=== PATIENT | male | born 1990 | race Caucasian/White ===

== ENCOUNTER 2025-05-03 21:10 | Emergency (ER) | payer SELFPAY ==
--- OUTSIDE RECORDS SUMMARY | 2025-05-03 21:13 | XMS REPORT | Continuity of Care Document ---
Author Name Unknown Address [address] [facility] [address] [place] [address] [facility] Address [address] [facility] [place] [address] Care Team Providers Care Carver Hand Name Role Phone PCP, PATIENT DOES NOT HAVE A Primary Care Physic pat Unavailable JOSE FRANCISCO MENDOZA Attending Clinician Unavail JOSE FRANCISCO Painter Attending Clinician Unavail able Shira Drew PA-C Attending Clinician [phone] Unknown, Attending Attending Clinician Unavailab SHIRA Bettencourt Attending Clinician Unavailable JOSE FRANCISCO MENDOZA Admitting Clinician Unavail able Problems Condition Name Condition Details Condition Category Status Onset Date Resolution Date Last Treatment Date Treating Clinician Comments Source Epigastric pain Epigastric pain Disease Active 04-26 00:00: 00 [facility] Allergies, Adverse Reactions, Alerts Allergy Name Allergy Type Status Severity Reaction(s) Onset Date Inactive Date Treating Clinician Comments Source NO KNOWN ALLERGIE S Drug Class Active [facility] Social History Social Habit Start Date Stop Date Quantity Comments Source [facility] use and exposure 2024-07-31 00:00:00 2024-07-31 00:00:00 Smokeless tobacco non-user [facility] History of Social function 2024-07-31 00:00:00 2024-07-31 00:00:00 [facility] Sex assigned at 1990 00:00:00 1990 00:00:00 [facility] Smoking Status Start Date Stop Date Source Never smoked tobacco [facility] Medications Ordered Medication Name Filled Medication Name Start Date Stop Date Current Medication? Ordering Clinician Indication Dosage Frequency Signature (SIG) Comments Components Source dicyclomine 20 mg tablet 04-26 00:00: 00 05-02 04:59 :00 Yes [id number] 20mg Take 1 tablet by mouth every 8 hours as needed for Abdominal pain for up to 5 days. [facility] Immunizations Ordered Immunization Name Filled Immunization Name Date Status Comments Source TDAP 2024-10-11 00:00:00 Completed [facility] Vital Signs Vital Name Observation Time Observation Value Comments S alexa Systolic blood pressure 2025-04-27 04:49:00 125 mm[Hg] [facility] Diastolic blood pressure 2025-04-27 04:49:00 75 mm[Hg] [facility] Heart rate 2025-04-27 04:49:00 76 /min [facility] Body temperature 2025-04-27 04:49:00 36.67 [facility] Respiratory rate 2025-04-27 04:49:00 16 /min [facility] Oxygen saturation in Arterial blood by Pulse oximetry 2025-04-27 04:49:00 100 /min [facility] Body height 2025-04-27 01:59:00 190.5 cm [facility] Body weight 2025-04-27 01:59:00 122.018 kg [facility] BMI 2025-04-27 01:59:00 33.62 kg/m2 [facility] Systolic blood pressure 2025-04-23 19:03:00 125 mm[Hg] [facility] Diastolic blood pressure 2025-04-23 19:03:00 83 mm[Hg] [facility] Heart rate 2025-04-23 19:03:00 80 /min [facility] Body temperature 2025-04-23 19:03:00 37.11 [facility] Body height 2025-04-23 19:03:00 190.5 cm [facility] Body weight 2025-04-23 19:03:00 122.063 kg [facility] BMI 2025-04-23 19:03:00 33.64 kg/m2 [facility] Oxygen saturation in Arterial blood by Pulse oximetry 2025-04-23 19:03:00 97 /min [facility] Systolic blood pressure 2024-10-12 01:18:00 129 mm[Hg] [facility] Diastolic blood pressure 2024-10-12 01:18:00 88 mm[Hg] [facility] Heart rate 2024-10-12 01:18:00 96 /min [facility] Body temperature 2024-10-12 01:18:00 36.56 [facility] Respiratory rate 2024-10-12 01:18:00 17 /min [facility] Body height 2024-10-12 01:18:00 190.5 cm [facility] Body weight 2024-10-12 01:18:00 125.816 kg [facility] BMI 2024-10-12 01:18:00 34.67 kg/m2 [facility] Oxygen saturation in Arterial blood by Pulse oximetry 2024-10-12 01:18:00 99 /min [facility] Procedures Procedure Date / Time Performed Performing Clinicia n Source HEPATIC FUNCTION PANEL ([id number]) (ALB,T.PRO,BILI T,BU/BC,ALT,AST,ALK PHOS) 2025-04-27 03:12:00 [facility] COMP. METABOLIC PANEL (79649) 2025-04-27 03:12:00 [facility] CBC WITH DIFF 2025-04-27 03:12:00 [facility] URINALYSIS 2025-04-27 03:12:00 [facility] CT ABDOMEN PELVIS WO CONTRAST 2025-04-27 02:57:51 [facility] XR KUB 2025-04-23 19:45:10 [facility] TDAP VACCINE, >11 YRS, IM 2024-10-12 01:20:59 Rajendra Shira [facility] Encounters Start Date/Time End Date/Time Encounter Type Admission Type Attending [facility] Care Facility Care Department Encounter ID Source 2025-04-26 21:02:00 2025-04-26 23:50:00 Emergency X JOSE FRANCISCO MENDOZA [facility] ERT [id number] [facility] 2025-04-23 14:18:25 2025-04-23 23:59:00 Hospital Encounter Shira Shaw [facility] [id number] [facility] 2025-04-23 14:00:00 2025-04-23 14:58:03 Urgent Care R Shira Drew Unknown, Attending [facility] [id number] [facility] 2024-10-11 19:00:00 2024-10-11 19:32:14 Outpatient R SHIRA DREW [facility] [id number] [facility] 2024-10-11 19:00:00 2024-10-11 19:32:14 Urgent Care Shira Drew Unknown, Attending [facility] [id number] [facility] Results Test Description Test Time Test Comments Results Result Co mments Source [facility]33021[facility]2025-04-27 03:38:42* Test Item Value Reference Range Interpretation Comme nts NA (test code = 9219400783) 138 mmol/L 135-145 K (test code = 9643234941) 3.9 mmol/L 3.5-5.0 CL (test code = 1364967530) 103 mmol/L 98-108 CO2 TOTAL (test code = 7174059027) 24 mmol/L 23-31 AGAP (test code = 5859252818) 11 2-16 BUN (test code = 3179723843) 12 mg/dL 7-23 GLUCOSE (test code = 5077653881) 99 mg/dL 70-110 CREATININE (test code = 2160-0) 1.08 mg/dL 0.60-1.25 TOTAL BILI (test code = 6397668146) 0.6 mg/dL 0.1-1.1 CALCIUM (test code = 4167692383) 9.3 mg/dL 8.6-10.6 T PROTEIN (test code = 4974118193) 8.4 g/dL 6.3-8.2 H ALBUMIN (test code = 6732373270) 4.9 g/dL 3.5-5.0 ALK PHOS (test code = 0224356694) 58 U/L 34-122 ALTv (test code = 1742-6) 28 U/L 5-50 AST(SGOT) (test code = 6649180284) 25 U/L 13-40 eGFR (test code = 20033-2) 93.5 mL/min/1.73m2 CKD-EPI eGFR (2020). Assuming creatinine has been stable day-to-day for at least three months, the eGFR indicates Category G1 (>= 90 mL/min/1.73 m2) Lab Interpretation (test code = 25358-2) Abnormal [facility] WITH [id number] 03:27:42* Test Item Value Reference Range Interpretation Comme nts WBC (test code = 6690-2) 8.79 4.20-10.70 RBC (test code = 789-8) 5.5 4.26-5.52 HGB (test code = 718-7) 15 g/dL 12.2-16.4 HCT (test code = 4544-3) 46.4 % 38.4-49.3 MCV (test code = 787-2) 84.4 fL 81.7-95.6 MCH (test code = 785-6) 27.3 pg 26.1-32.7 MCHC (test code = 786-4) 32.3 g/dL 31.2-35.0 RDW-SD (test code = 06151-6) 38.5 fL 38.5-51.6 RDW-CV (test code = 788-0) 12.7 % 12.1-15.4 PLT (test code = 777-3) 255 150-328 MPV (test code = 10992-3) 10 fL 9.8-13.0 NRBC/100 WBC (test code = 9025715867) 0 0.0-10.0 NRBC x10^3 (test code = 8114425110) See_Comment [Automated me ssage] The system which generated this result transmitted reference range: 10*3/?L. The reference range was not used to interpret this result as normal/abnormal. GRAN MAT (NEUT) % (test code = 770-8) 63.2 % IMM GRAN % (test code = 4108530060) 0.2 % LYMPH % (test code = 736-9) 25.8 % MONO % (test code = 5905-5) 9.7 % EOS % (test code = 713-8) 0.8 % BASO % (test code = 706-2) 0.3 % GRAN MAT x10^3(ANC) (test code = 9421585201) 5.55 10*3/uL 1.99-6.95 IMM GRAN x10^3 (test code = 8455022495) 0.00-0.06 LYMPH x10^3 (test code = 731-0) 2.27 10*3/uL 1.09-3.23 MONO x10^3 (test code = 742-7) 0.85 10*3/uL 0.36-1.02 EOS x10^3 (test code = 711-2) 0.07 10*3/uL 0.06-0.53 BASO x10^3 (test code = 704-7) 0.03 10*3/uL 0.01-0.09 [facility] [id number] 03:19:06EXAM: CT ABDOMEN PELVIS WO CONTRAST HISTORY: 34 years-old Male with Abdominal pain, acute, nonlocalized . TECHNIQUE: Contiguous axial imaging from the level of the lung basesthrough the proximal thighs was performed withoutintravenous contrast.Coronal and sagittal reconstructions were obtained. COMPARISON: None FINDINGS: LOWER THORAX: The included lungs are clear. HEPATOBILIARY: Unremarkable. No cholelithiasis or ductal dilatation. SPLEEN: No splenomegaly. PANCREAS: No peripancreatic fat stranding or fluid collection. ADRENAL GLANDS: No nodules. KIDNEYS/BLADDER/URETERS: No hydronephrosis, stones or perinephricstranding/fluid collection. PELVIS: No free fluid or collection. Moderate bladder wall thickening.Unremarkable prostate. GI TRACT: No bowel dilatation. Normal appendix with a tiny appendicolithnear the tail. No fat stranding or fluid collection in the right lowerquadrant. No significant stool burden. Tiny/small hiatal hernia. PERITONEUM AND RETROPERITONEUM: No free air or fluid collection LYMPH NODES: No lymphadenopathy VESSELS: No critical stenosis within limitation of the exam. BONES AND SOFT TISSUES: No acute osseous findings. Mild compressiondeformity of the L3 superior endplate, likely from a large Schmorl's node.Small fat-containing umbilical hernia.[facility] [id number] 20:30:32Abdominal Radiographs Indication: abdominal pain ? Technique: (Images: 3) upright and supine views including a view of thechest in both lateral and frontal images Comparison: None RL: Ordering Clinician: SHIRA DREW Technical Quality: Adequate Findings:Air/Chest: No free airseen under the diaphragm. Bowel: No dilated bowel. Calcifications: ?No abnormal calcifications project over the renal shadows.Pelvic calcifications are most likely phleboliths. Skeleton: ?No fractures. [facility] Date/Time Note Provider Source 2025-04-26 23:49:47 Patient given discharge instructions, and verbalized no further concerns or questions. Skin p/w/d, rr equal and non labored. A&Ox4. Ambulated independently with a steady gait in stable condition. Nasrin Gordon RN [facility] - Health 2025-04-26 20:56:57 Pt. Presents to ED ambulatory with steady gait with C/O of constipation x1 week; pt. Reports he was seen at [facility]gent [facility] on Thursday & was placed on GI rest (liquid diet); pt. Reports, "It feels like there's a knot in my stomach;" pt. Reports several liquid stools x10 since last night & has been taking miralax; pt. Denies having a small formed stool yesterday morning; denies N/V; pt. Reports pressure to epigastric region PMH IBS Kary Haider RN [facility]
[2025-05-03] MEDS ORDERED: FAMOTIDINE 20 MG/2 ML VIAL IV ONE (21:55)
[2025-05-03 22:41] LABS: ALT/SGPT 28.0 U/L (16-61); AST/SGOT 12.0 U/L (15-37); Albumin 4.0 g/dL (3.4-5.0); Albumin/Globulin Ratio 1.1 (1.1-1.8); Alkaline Phosphatase 60.0 U/L (45-117); Anion Gap 9.4 mEq/L (5.0-15.0); BUN Blood Urea Nitrogen 14.0 mg/dL (7-18); Globulin 3.6 g/dL (2.3-3.5); Glucose Level 97.0 mg/dL (74-106); Lipase 22.0 U/L (13-75); Potassium 3.4 mEq/L (3.5-5.1)
[2025-05-03 22:46] LABS: Absolute Lymphocytes (CBC) 1.8 K/uL (0.7-4.9); Hematocrit 44.5 % (39.6-49.0); Hemoglobin 15.0 g/dL (13.6-17.9); MCH 27.5 pg (27.0-35.0); MCHC 33.8 g/dL (32.0-36.0); MCV 81.4 fL (80-100); MPV 8.2 fL (7.6-11.3); Nucleated RBC Absolute Count 0.0 (0-0); Nucleated Red Blood Cells % 0.0 % (0-0); RBC Red Blood Cell Count 5.47 M/uL (4.33-5.43); White Blood Count 6.80 thou/uL (4.3-10.9)
--- NOTE | 2025-05-04 01:13 | ER ---
Nurse's Notes [facility] Name: Lokesh Mcadams Age: 34 yrs Sex: Male : 1990 Arrival Date: 05/03/2025 Time: 21:10 Bed 18 Private MD: Diagnosis: Upper abdominal pain, unspecified Presentation: 05/03 21:47 Chief complaint: Patient states: I went to [facility] ER a week ago with abdominal pain kd3 and they told me that i had a hiatal hernia and maybe an ulcer and sent me home to follow up with GI. I have not followed up with GI. I came here after i ate today because it still hurts. Coronavirus screen: Vaccine status: Patient reports being unvaccinated. Ebola Screen: No symptoms or risks identified at this time. Initial Sepsis Screen: Does the patient meet any 2 criteria? No. Patient's initial sepsis screen is negative. Does the patient have a suspected source of infection? No. Patient's initial sepsis screen is negative. Risk Assessment: Do you want to hurt yourself or someone else? Patient reports no desire to harm self or others. Onset of symptoms was May 03, 2025. 21:47 Method Of Arrival: Ambulatory kd3 21:47 Acuity: KVNG 3 kd3 Triage Assessment: 21:49 General: Appears in no apparent distress. Behavior is calm, cooperative. Pain: kd3 Complains of pain in right upper quadrant and left upper quadrant. GI: Abdomen is non-distended. Historical: - Allergies: 21:49 No Known Allergies; kd3 - Immunization history:: Adult Immunizations up to date. - Infectious Disease History:: Denies. - Social history:: Smoking status: Patient denies any tobacco usage or history of. Screenin:26 [facility] ED Fall Risk Assessment (Adult) History of falling in the last 3 months, tb4 including since admission No falls in past 3 months (0 pts) Confusion or Disorientation No (0 pts) Intoxicated or Sedated No (0 pts) Impaired Gait No (0 pts) Mobility Assist Device Used No (0 pt) Altered Elimination No (0 pt) Score/Fall Risk Level 0 - 2 = Low Risk Oriented to surroundings, Maintained a safe environment. Abuse screen: Denies threats or abuse. Denies injuries from another. Nutritional screening: No deficits noted. Tuberculosis screening: No symptoms or risk factors identified. Assessment: 22:26 General: Appears in no apparent distress. comfortable, Behavior is calm, cooperative. tb4 Pain: Complains of pain in abdomen Pain does not radiate. Pain currently is 1 out of 10 on a pain scale. Quality of pain is described as aching, Pain began 2-3 days ago. Is continuous, Alleviated by nothing. Aggravated by increased activity. Neuro: Level of Consciousness is awake, alert, obeys commands, Oriented to person, place, time, situation, Surgical Technologist are equal bilaterally Moves all extremities. Full function Gait is steady, Speech is normal, Facial symmetry appears normal. Cardiovascular: Denies chest pain, shortness of breath. Respiratory: Airway is patent Respiratory effort is even, unlabored, Respiratory pattern is regular, symmetrical. GI: Bowel sounds present X 4 quads. Abd is soft Abdomen is tender to palpation X 4 quads. Reports upper abdominal pain. : No signs and/or symptoms were reported regarding the genitourinary system. EENT: No signs and/or symptoms were reported regarding the EENT system. Derm: No signs and/or symptoms reported regarding the dermatologic system. Skin is intact, is healthy with good turgor, Skin is dry, Skin is normal, Skin temperature is warm. Musculoskeletal: No signs and/or symptoms reported regarding the musculoskeletal system. Circulation, motion, and sensation intact. Range of motion: intact in all extremities. 05/04 01:19 General: Appears in no apparent distress. Behavior is calm, cooperative. Neuro: Level kd3 of Consciousness is awake, alert, obeys commands, Oriented to person, place, time, situation. Cardiovascular: Patient's skin is warm and dry. Respiratory: Airway is patent Trachea midline Respiratory effort is even, unlabored, Respiratory pattern is regular, symmetrical. Vital Signs: 05/03 21:47 BP 157 / 87; Pulse 83; Resp 18; Temp 98.6(O); Pulse Ox 99% on R/A; Weight 122.02 kg; kd3 Height 6 ft. 3 in. ; 21:55 BP 135 / 79; Pulse 65; Resp 18; Temp 97.4(O); Pulse Ox 99% on R/A; Weight 122.02 kg; tb4 Height 6 ft. 3 in. ; Pain 09/16; 05/04 01:19 BP 117 / 73; Pulse 66; Resp 18; Pulse Ox 99% on R/A; kd3 05/03 21:55 Body Mass Index 33.62 (122.02 kg, 190.5 cm) tb4 21:55 Pain Scale: Adult tb4 ED Course: 05/03 21:21 Patient arrived in ED. jj6 21:22 Lyn De Souza FNP-C [facility] kb 21:22 Romulo Woodall MD is Attending Physician. kb 21:49 Triage completed. kd3 21:49 Arm band placed on right wrist. kd3 22:00 Inserted saline lock: 22 gauge in right antecubital area, using aseptic technique. tb4 Blood collected. Flushed with 10 mL NS. 22:26 Patient has correct armband on for positive identification. Bed in low position. Call tb4 light in reach. Adult w/ patient. Client placed on continuous cardiac and pulse oximetry monitoring. NIBP monitoring applied. Door closed. 22:26 No provider procedures requiring assistance completed. Initial lab(s) drawn, by tn, tb4 sent to lab. 23:06 CT Abd/Pelvis - IV Contrast Only In Process Unspecified. EDNY 05/04 01:19 Rose Mary Kennedy, RN is Primary Nurse. kd3 01:20 Provided Education on: follow up . kd3 01:20 IV discontinued, intact, bleeding controlled, No redness/swelling at site. Pressure kd3 dressing applied. Administered Medications: 05/03 22:24 Drug: Famotidine IVP 20 mg IVP once; dilute with 10 mL 0.9% NaCl; give over 2 minutes tb4 Route: IVP; Site: right antecubital; Medication: 22:26 VIS not applicable for this client. tb4 Outcome: 05/04 01:13 Discharge ordered by . kb 01:19 Discharged to home ambulatory, kd3 01:19 Condition: stable 01:19 Discharge instructions given to patient, family, Instructed on discharge instructions, follow up and referral plans. Demonstrated understanding of instructions, follow-up care, 01:20 Patient left the ED. kd3 Signatures: Dispatcher [employer] EDNY Lyn De Souza FNP-C FNP-Ckb Maggie Magaña jj6 Rose Mary Kennedy, RN BERNADINE kd3 Gin Hernández RN RN tb4 Corrections: (The following items were deleted from the chart) 05/03 22:24 22:13 Inserted saline lock: 22 gauge in left antecubital area, using aseptic technique. tb4 Blood collected. Flushed with 10 mL NS tb4
--- NOTE | 2025-05-04 01:13 | EDPHYS ---
Physician Documentation [facility] Name: Lokesh Mcadams Age: 34 yrs Sex: Male : 1990 Arrival Date: 05/03/2025 Time: 21:10 Bed 18 Private MD: ED Physician Romulo Woodall HPI: 05/03 22:46 This 34 yrs old Male presents to ER via Ambulatory with complaints of Abdominal Pain. kb 22:46 Patient is a 34-year-old male who presents for epigastric pain that started about a kb week and a half ago. States he was seen at [place] ER 1 week ago and told that he had a small hiatal hernia and a possible ulcer. States the pain has been intermittent since then but was worse tonight after eating. Denies nausea, vomiting, diarrhea.. Historical: - Allergies: 21:49 No Known Allergies; kd3 - Immunization history:: Adult Immunizations up to date. - Infectious Disease History:: Denies. - Social history:: Smoking status: Patient denies any tobacco usage or history of. ROS: 22:46 Constitutional: As per HPI kb Exam: 22:46 Constitutional: This is a well developed, well nourished patient who is awake, alert, kb and in no acute distress. Head/Face: Normocephalic, atraumatic. ENT: Moist Mucous membranes Cardiovascular: Regular rate Respiratory: Respirations even and unlabored. No increased work of breathing. Talking in full sentences Abdomen/GI: Soft, non-tender. No distention Skin: Warm, dry with normal turgor. Normal color. MS/ Extremity: Pulses equal, no cyanosis. Neurovascular intact. Full, normal range of motion. Neuro: Awake and alert, GCS 15, oriented to person, place, time, and situation. Vital Signs: 21:47 BP 157 / 87; Pulse 83; Resp 18; Temp 98.6(O); Pulse Ox 99% on R/A; Weight 122.02 kg; kd3 Height 6 ft. 3 in. ; 21:55 BP 135 / 79; Pulse 65; Resp 18; Temp 97.4(O); Pulse Ox 99% on R/A; Weight 122.02 kg; tb4 Height 6 ft. 3 in. ; Pain 09/16; 05/04 01:19 BP 117 / 73; Pulse 66; Resp 18; Pulse Ox 99% on R/A; kd3 05/03 21:55 Body Mass Index 33.62 (122.02 kg, 190.5 cm) tb4 21:55 Pain Scale: Adult tb4 MDM: 05/03 21:23 Medical Screening Exam initiated 22:47 Differential diagnosis: gastritis, gastroesophageal reflux disease, non-specific abd kb pain, pancreatitis. Data reviewed: vital signs, nurses notes. Historians other than the Patient: Spouse/Significant Other: Significant other. 05/04 01:14 I considered the following discharge prescriptions or medication management in the emergency department I discussed and recommended Over The Counter medications, Antibiotics: At this time antibiotics are not recommended. Counseling: I had a detailed discussion with the patient and/or guardian regarding the historical points, exam findings, and any diagnostic results supporting the discharge/admit diagnosis, lab results, radiology results, the need for outpatient follow up, a family practitioner, a agricultural production engineer, to return to the emergency department if symptoms worsen or persist or if there are any questions or concerns that arise at home. 05/03 21:46 Order name: CBC with Diff; Complete Time: 23:08 kb 05/03 21:46 Order name: CMP; Complete Time: 22:46 05/03 21:46 Order name: Lipase; Complete Time: 22:46 05/03 21:46 Order name: CT Abd/Pelvis - IV Contrast Only 05/03 21:46 Order name: IV Saline Lock; Complete Time: 22:13 05/03 21:46 Order name: Labs collected and sent; Complete Time: 22:13 kb Administered Medications: 05/03 22:24 Drug: Famotidine IVP 20 mg IVP once; dilute with 10 mL 0.9% NaCl; give over 2 minutes tb4 Route: IVP; Site: right antecubital; Disposition: 05/04 07:34 I reviewed the patient's care provided by the Advanced Practice Provider and agree with tw7 the diagnosis and treatment plan. Disposition Summary: 05/04/25 01:13 Discharge Ordered Notes: Location: Home Condition: Stable Diagnosis - Upper abdominal pain, unspecified kb Followup: kb - With: Emergency Department - When: As needed - Reason: Worsening of condition Followup: kb - With: Private Physician - When: 2 - 3 days - Reason: Recheck today's complaints, Continuance of care, Re-evaluation by your physician Discharge Instructions: - Discharge Summary Sheet kb - Abdominal Pain, Adult, [id number] kb Forms: - Medication Reconciliation Form kb - Antibiotic Education kb - Prescription Opioid Use kb - Patient Portal Instructions kb - Leadership Thank You Letter kb Signatures: Dispatcher [employer] EDMS Lyn De Souza, GYN-C GYN-Rose Mary Jennings, RN RN kd3 Romulo Woodall MD MD tw7 Gin Hernández, RN RN tb4 Corrections: (The following items were deleted from the chart) 05/03 21:47 21:47 CBC+H.LAB.BRZ ordered. EDMS EDMS 21:47 21:47 COMPREHENSIVE METABOLIC PANEL+C.LAB.BRZ ordered. EDMS EDMS 21:47 21:47 LIPASE+C.LAB.BRZ ordered. EDMS EDMS 21:47 21:47 Abdomen Pelvis W Con+CT.RAD.BRZ ordered. EDMS EDMS
--- NOTE | 2025-05-04 01:53 | RAD REPORT ---
PROCEDURE: Abdomen Pelvis W Contrast CLINICAL HISTORY: ABD PAIN TECHNIQUE: Contiguous axial images obtained through the abdomen and pelvis following the uneventful administrati on of IV contrast. Coronal and sagittal reformatted images were provided. This exam was performed according to our departmental dose-optimization program, which includes autom ated exposure control, adjustment of the mA and/or kV according to patient size and/or use of iterative reconstruction technique. COMPARISON: None available for comparison. FINDINGS: Lung bases: Clear Liver: Unremarkable Gallbladder and biliary system: Unremarkable Pancreas: Unremarkable Spleen: Unremarkable Adrenals: Unremarkable Kidneys: Normal renal cortical enhancement. No calculi. No hydronephrosis. GI: No obstruction. No appreciable mucosal thickening. Appendix: No findings to suggest acute appendicitis. Urinary bladder: Unremarkable Reproductive: Unremarkable as visualized Lymph nodes: No pathologically enlarged lymph nodes. Peritoneum: No focal fluid collection. No free air. Vessels: No abdominal aortic aneurysm. Abdominal wall: Unremarkable Bones: Unremarkable IMPRESSION: No acute intra-abdominal or pelvic disease. Electronically signed by: Nadir Briones MD 05/03/2025 11:40 PM CDT Due to temporary technical issues with the PACS/[employer] reporting system, reports are being giselle d by the in-house radiologist without review as a courtesy to ensure prompt reporting the interpreting radiologist is fully responsible for the content of the report. Transcribed Date/Time: 05/04/2025 1:52 AM
[2025-05-04 11:41] VITALS: O2SAT 99
[2025-05-04 11:51] VITALS: TEMP 97.4
[2025-05-04 11:52] VITALS: BP 117/73
== END 2025-05-04 01:20 | disposition home or self-care (01) ==
LOC: ER 21:10
DX: R10.13 Epigastric pain (principal)
CPT/HCPCS: 36415; 74177; 80053; 83690; 85025; 96374; 99284; Q9967